=== PATIENT | female | born 2000 | race Two or more races ===

== ENCOUNTER → 2021-05-30 | Emergency (ER) | payer OTHER ==
[~2021-05-30] VITALS: Ht 160 cm; Wt 59.1 kg
[2021-05-30 15:20] VITALS: BP 119/69
[2021-05-30 15:58] LABS: URINE HCG NEGATIVE (NEG)
== END | disposition home or self-care (01) ==
LOC: ER 15:15
DX: M25.552 Pain in left hip (principal)
CPT/HCPCS: 73502; 81025; 99284

== ENCOUNTER 2024-04-20 03:05 | Emergency (ER) | payer OTHER ==
[~2024-04-20] VITALS: Ht 160 cm; Wt 52.7 kg
[2024-04-20 03:10] VITALS: TEMP 98.5
[2024-04-20] MEDS ORDERED: PRED20TA PO (03:30)
[2024-04-20] MEDS ORDERED: AMOX-115 PO (03:30)
[2024-04-20] MEDS: amox tr/potassium clavulanate 875/125mg TAB PO ONE (03:39)
[2024-04-20] MEDS: ondansetron 4mg rapidly disintigrating tab PO ONE (03:39)
[2024-04-20] MEDS: dexamethasone sod phosphate 10mg/ml inj IM STA (03:40)
[2024-04-20] MEDS: LIDOcaine 2% Viscous 15ml cup MM ONE (03:47)
[2024-04-20 03:48] VITALS: BP 112/74; PULSE 74; RESP 14; O2SAT 98
[2024-04-20] MEDS ORDERED: HYDR-3965 PO (04:01)
== END 2024-04-20 04:11 | disposition home or self-care (01) ==
LOC: ER 03:06
DX: J36 Peritonsillar abscess (principal); Z79.2 Long term (current) use of antibiotics; Z79.899 Other long term (current) drug therapy
CPT/HCPCS: 42700; 96372; 99284; J1100; 10160